=== PATIENT | male | born 1990 | race Two or more races ===

== ENCOUNTER 2018-02-06 05:15 | Emergency (ER) | payer MEDICAID ==
[~2018-02-06] VITALS: Ht 175.3 cm; Wt 127.0 kg
[2018-02-06] MEDS ORDERED: NKM (05:31)
[2018-02-06 05:41] VITALS: BP 131/89
[2018-02-06] MEDS ORDERED: BACTRIM DS TAB1 EAC1 ORAL (05:43)
[2018-02-06] MEDS ORDERED: MUPIROCIN22 GM TOPIC (05:43)
--- NOTE | 2018-02-06 05:43 | Emergency Room Report ---
History of Present Illness General Chief Complaint: Male Urogenital Problems Source: Patient Present Illness HPI Is a 27-year-old male with no past medical history. He presents with a rash to the suprapubic area. Initially is some redness and itchiness for a week to 2 weeks. Within the last few days now with raised and redness. No discharge. No drainage. Not diabetic. Itchy. Allergies: Coded Allergies: No Known Allergies (Unverified , 02/06/18) Patient History Past Medical History: none, see triage record, old chart reviewed Past Surgical History: none Pertinent Family History: none Social History: Denies: smoking Immunizations: other Reviewed Nursing Documentation: PMH: Agreed, PSxH: Agreed Nursing Documentation-PMH Past Medical History: No Stated History Review of Systems Eye: Denies: eye pain, blurred vision ENT: Denies: ear pain, nose congestion, throat swelling Respiratory: Denies: cough, shortness of breath Cardiovascular: Denies: chest pain, palpitations Gastrointestinal: Denies: abdominal pain, diarrhea, nausea, vomiting Musculoskeletal: Denies: back pain, joint pain Skin: Denies: rash Neurological: Denies: headache, numbness Endocrine: Denies: increased thirst, increased urine Hematologic/Lymphatic: Denies: easy bruising All Other Systems: negative except mentioned in HPI Physical Exam Vital Signs Date Time Temp Pulse Resp B/P (MAP) Pulse Ox O2 Delivery O2 Flow Rate FiO2 02/06/18 05:27 98.5 64 18 131/89 96 Room Air 98.4 vitals normal Sp02 EP Interpretation: reviewed, normal General Appearance: well appearing, no apparent distress, alert Head: normocephalic, atraumatic Eyes: bilateral eye PERRL, bilateral eye EOMI ENT: hearing grossly normal, normal pharynx Neck: full range of motion, supple, no meningismus Respiratory: chest non-tender, lungs clear, normal breath sounds Cardiovascular #1: regular rate, rhythm, no murmur Gastrointestinal: normal bowel sounds, non tender, no mass, no organomegaly, no bruit, non-distended Genitourinary: other - suprapubic area with several erythematous indurated area with central drainage. No big abscess in the period Musculoskeletal: back normal, gait/station normal, normal range of motion Psychiatric: mood/affect normal Skin: warm/dry Medical Decision Making Diagnostic Impression: Primary Impression: Cellulitis Qualified Codes: L03.90 - Cellulitis, unspecified ER Course Patient with cellulitis of the suprapubic area. May have early abscess but appeared already drained. Most likely MRSA. We'll put on antibiotics. No deep infection findings. No necrotizing fasciitis. Last Vital Signs Date Time Temp Pulse Resp B/P (MAP) Pulse Ox O2 Delivery O2 Flow Rate FiO2 02/06/18 05:27 98.5 64 18 131/89 96 Room Air 98.4 Status: improved Disposition: HOME, SELF-CARE Condition: Stable Scripts Mupirocin* (MUPIROCIN*) 22 Gm Oint...g. 1 APPLIC TOPIC THREE TIMES A DAY, #22 GM Prov: NATALIE NICHOLSON M.D. 02/06/18 Trimethoprim/Sulfamethoxazole 160/800* (BACTRIM DS TABLET*) 1 Each Tablet 1 TAB ORAL Q12H, #14 TAB 0 Refills Prov: NATALIE NICHOLSON M.D. 02/06/18 Referrals: Melissa STEPHENSON,REFERRING (PCP) Additional Instructions: Follow-up with your doctor in 3-5 days as needed. Return if symptom worsen. NATALIE NICHOLSON M.D. Feb 06, 2018 05:43
[2018-02-06 05:53] VITALS: BP 131/89
== END 2018-02-06 05:54 | disposition home or self-care (01) ==
LOC: EMR 05:36
DX: L03.319 Cellulitis of trunk, unspecified (principal)
CPT/HCPCS: 99284

== ENCOUNTER 2020-03-11 00:07 | Emergency (ER) | payer MEDICAID ==
[~2020-03-11] VITALS: Ht 175.3 cm; Wt 120.2 kg
[~2020-03-11 00:07] MED LIST: BACTRIM DS TAB1 EAC1 ORAL; MUPIROCIN22 GM TOPIC; NKM
[2020-03-11 00:24] VITALS: BP 125/80
--- NOTE | 2020-03-11 00:36 | Emergency Room Report ---
History of Present Illness General Chief Complaint: Skin Rash/Abscess Source: Patient Present Illness [facility] This is a 29-year-old male with no past medical history. He presents with chief complaint of irritation to the tip of the penis. This been ongoing for months. He is sexually active with protection. He and his girlfriend got STD testing recently and was negative. Not associated with any discharge. Occasionally when he urinates can be painful. Denies any drainage. He denies any trauma. No family history of diabetes. Denies any dysuria frequency. No urgency. Allergies: Coded Allergies: No Known Allergies (Unverified , 02/06/18) COVID-19 Screening Contact w/high risk pt: No Recent Travel to affected area: No Experienced COVID-19 symptoms?: No Patient History Past Medical History: see triage record, old chart reviewed Past Surgical History: none Pertinent Family History: none Social History: Denies: smoking Immunizations: other Reviewed Nursing Documentation: PMH: Agreed; PSxH: Agreed Nursing Documentation-PMH Past Medical History: No Stated History Review of Systems Eye: Denies: eye pain, blurred vision ENT: Denies: ear pain, nose congestion, throat swelling Respiratory: Denies: cough, shortness of breath Cardiovascular: Denies: chest pain, palpitations Gastrointestinal: Denies: abdominal pain, diarrhea, nausea, vomiting Musculoskeletal: Denies: back pain, joint pain Skin: Denies: rash Neurological: Denies: headache, numbness Endocrine: Denies: increased thirst, increased urine Hematologic/Lymphatic: Denies: easy bruising All Other Systems: negative except mentioned in HPI Physical Exam Vital Signs Date Time Temp Pulse Resp B/P (MAP) Pulse Ox O2 Delivery O2 Flow Rate FiO2 03/11/20 00:15 98.2 88 18 125/80 (95) 99 Room Air Vitals normal Sp02 EP Interpretation: reviewed, normal General Appearance: well appearing, no apparent distress, alert, obese Head: normocephalic, atraumatic Eyes: bilateral eye PERRL, bilateral eye EOMI ENT: hearing grossly normal, normal pharynx Neck: full range of motion, supple, no meningismus Respiratory: chest non-tender, lungs clear, normal breath sounds Cardiovascular #1: regular rate, rhythm, no murmur Gastrointestinal: normal bowel sounds, non tender, no mass, no organomegaly, no bruit, non-distended Genitourinary: other - Patient is circumcised. There is slight irritation at the meatal opening. No vesicular lesion. No discharge. Musculoskeletal: back normal, normal range of motion, gait/station normal Psychiatric: mood/affect normal Medical Decision Making Diagnostic Impression: Primary Impression: Urethritis, not sexually transmitted ER Course Patient presents with irritation to the tip of the penis. Could be fungal. Accu-Chek normal. Not any infection. He had STD testing was negative. Will discharge home. Last Vital Signs Date Time Temp Pulse Resp B/P (MAP) Pulse Ox O2 Delivery O2 Flow Rate FiO2 03/11/20 00:15 98.2 88 18 125/80 (95) 99 Room Air Status: unchanged Disposition: HOME, SELF-CARE Condition: Stable Scripts Nystatin/Triamcin (NYSTATIN-TRIAMCINOLONE CREAM) 15 Gm Cream..g. 15 GM TP BID, #15 GM Prov: Dante Leija MD 03/11/20 Fluconazole* (DIFLUCAN*) 100 Mg Tablet 100 MG ORAL DAILY, #7 TAB Prov: Dante Leija MD 03/11/20 Additional Instructions: Follow-up with your doctor in 7 days. You may need referral to see a jewel staker. Return if symptoms worsen. Dante Leija MD Mar 11, 2020 00:36
[2020-03-11 00:45] LABS: APPEARANCE,URINE CLEAR; BILIRUBIN, URINE NEGATIVE (NEGATIVE); COLOR,URINE PALE YELLOW; GLUCOSE, URINE (UA) NEGATIVE (NEGATIVE); KETONES,URINE NEGATIVE (NEGATIVE); NITRITE,URINE NEGATIVE (NEGATIVE); PH,URINE 7 (4.5-8.0); PROTEIN,URINE NEGATIVE (NEGATIVE); UROBILINOGEN,URINE 1 MG/DL (0.0-1.0)
[2020-03-11 00:50] LABS: LEUKOCYTE ESTERASE ,URINE NEGATIVE (NEGATIVE)
[2020-03-11] MEDS ORDERED: NYSTATIN-TRIAMC15 G2 TP (01:12)
[2020-03-11] MEDS ORDERED: DIFLUCAN100 MG ORAL (01:12)
[2020-03-11 01:15] VITALS: BP 118/73
== END 2020-03-11 01:15 | disposition home or self-care (01) ==
LOC: EMR 00:47
DX: N34.2 Other urethritis (principal); E66.9 Obesity, unspecified; Z68.39 Body mass index [BMI] 39.0-39.9, adult
CPT/HCPCS: 81003; Z7502; 99282

== ENCOUNTER 2020-12-16 06:26 | Emergency (ER) | payer MEDICAID ==
[~2020-12-16] VITALS: Ht 175.3 cm; Wt 131.5 kg
[~2020-12-16 06:26] MED LIST changes: +DIFLUCAN100 MG ORAL; +NYSTATIN-TRIAMC15 G2 TP
--- NOTE | 2020-12-16 07:01 | NUR ---
ED Nurse Note: Pt walked in from home, he walks with a steady gait, axox4, he speaks in full sentances, breathing is even and unlabored. Pt states that he has neck and back pain since sunday after he reports doing "nitrous oxide" with balloons. Educated pt about risks of inhaling substances. Pt is afebrile.
[2020-12-16 07:05] VITALS: BP 134/93
--- NOTE | 2020-12-16 07:05 | NUR ---
ED Nurse Note: Patient walked into the ED with c/o headache and neckpain onset 12/13/19/. Pain starts from the head that radiates to neck, pain is throbbing, 3/10 and comes and goes. Pt also c/o numbness in the tongue and muscle weakness at jaw area. Pt was drinking and used nitrous oxide the night s/sx happened. Denies injury/trauma. Patient is AAOX4 and ambulatory
--- NOTE | 2020-12-16 07:07 | NUR ---
ED Nurse Note: ERMD at bedside
--- NOTE | 2020-12-16 07:12 | Emergency Room Report ---
History of Present Illness General Chief Complaint: Headache Source: Patient Present Illness HPI Patient is a 30-year-old male presents for increased headache. Reports having onset of symptoms approximately 3 days ago. Associated nausea as well as eye pressure. Reports having onset of symptoms after alcohol and nitrous oxide use. Reports having increased paresthesias to the upper extremities as well as in creased generalized body aches. Reports of increased sore throat. 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 COVID-19 Screening: Negative COVID-19 COVID-19 Testing Source: [facility] Patient History Past Medical History: see triage record Reviewed Nursing Documentation: PMH: Agreed; PSxH: Agreed Nursing Documentation-PMH Past Medical History: No Stated History Review of Systems All Other Systems: negative except mentioned in HPI Physical Exam Vital Signs Date Time Temp Pulse Resp B/P (MAP) Pulse Ox O2 Delivery O2 Flow Rate FiO2 12/16/20 06:43 98.2 85 20 134/93 (107) 99 Room Air Sp02 EP Interpretation: reviewed, normal General Appearance: normal inspection, well appearing, no apparent distress, alert, GCS 15, obese Head: atraumatic ENT: normal ENT inspection, hearing grossly normal, normal voice Neck: normal inspection, full range of motion, supple, no bony tend Respiratory: normal inspection, lungs clear, normal breath sounds, no respiratory distress, no retraction, no wheezing Cardiovascular #1: regular rate, rhythm, no edema Gastrointestinal: normal inspection, normal bowel sounds, non tender, soft, no guarding, no hernia Genitourinary: no CVA tenderness Musculoskeletal: normal inspection, back normal, normal range of motion Neurologic: alert, responsive, speech normal, normal inspection Psychiatric: normal inspection, judgement/insight normal, mood/affect normal Medical Decision Making Diagnostic Impression: Primary Impression: Headache ER Course Presented for headache. Differential diagnosis include was not limited to coronavirus infection, viral respiratory infection, intracranial hemorrhage among others. CT imaging was ordered to patient's new onset of headache. CT imaging read by radiology showed no acute pathology. Patient was given IV fluids as well as Reglan with improvement of symptoms.Patient has a benign overall exam. Does not have any evidence of focal neurologic deficit. Patient is advised to follow-up for repeat laboratory testing as well as outpatient Covid testing. Patient was given return precautions. He will be given prescriptions for medication for symptomatic management. Is advised not to use drugs. This medical record is generated with [employer] sand analyst software. There may be some sand analyst discrepancies related to use of this software Labs Test 12/16/20 07:00 12/16/20 07:27 White Blood Count 11.1 K/UL (4.8-10.8) Red Blood Count 5.64 M/UL (4.70-6.10) Hemoglobin 17.0 G/DL (14.2-18.0) Hematocrit 50.6 % (42.0-52.0) Mean Corpuscular Volume 90 FL (80-99) Mean Corpuscular Hemoglobin 30.2 PG (27.0-31.0) Mean Corpuscular Hemoglobin Concent 33.6 G/DL (32.0-36.0) Red Cell Distribution Width 12.3 % (11.6-14.8) Platelet Count 422 K/UL (150-450) Mean Platelet Volume 6.6 FL (6.5-10.1) Neutrophils (%) (Auto) 58.9 % (45.0-75.0) Lymphocytes (%) (Auto) 30.2 % (20.0-45.0) Monocytes (%) (Auto) 8.8 % (1.0-10.0) Eosinophils (%) (Auto) 0.9 % (0.0-3.0) Basophils (%) (Auto) 1.2 % (0.0-2.0) Last Vital Signs Date Time Temp Pulse Resp B/P (MAP) Pulse Ox O2 Delivery O2 Flow Rate FiO2 12/16/20 07:05 98.2 20 134/93 99 Room Air 12/16/20 06:43 85 Status: improved Disposition: HOME, SELF-CARE Condition: Stable Scripts Ibuprofen* (MOTRIN*) 400 Mg Tablet 400 MG ORAL Q8H, #30 TAB 0 Refills Prov: Tre Leon MD 12/16/20 Ondansetron Odt* (ZOFRAN ODT*) 4 Mg Tab.rapdis 4 MG BC EVERY 8 HOURS PRN for Nausea & Vomiting, #10 TAB 0 Refills Prov: Tre Leon MD 12/16/20 Tre Leon MD Dec 16, 2020 07:12
[2020-12-16] MEDS ORDERED: Metoclopramide 10mg/2ml Inj IVP ONE (07:30)
--- NOTE | 2020-12-16 07:33 | NUR ---
HAND-OFF: Report given to Machelle KLEIN .
[2020-12-16 07:54] LABS: BASOPHILS % (AUTO) 1.2 % (0.0-2.0); EOSINOPHILS % (AUTO) 0.9 % (0.0-3.0); HEMATOCRIT 50.6 % (42.0-52.0); LYMPHOCYTES % (AUTO) 30.2 % (20.0-45.0); MEAN CORPUSCULAR VOLUME 90 FL (80-99); MONOCYTES % (AUTO) 8.8 % (1.0-10.0); NEUTROPHILS % (AUTO) 58.9 % (45.0-75.0); PLATELET COUNT 422 K/UL (150-450); RED BLOOD COUNT 5.64 M/UL (4.70-6.10); RED CELL DISTRIBUTION WIDTH 12.3 % (11.6-14.8); WHITE BLOOD COUNT 11.1 K/UL (4.8-10.8)
--- NOTE | 2020-12-16 08:00 | Diagnostic Imaging Report ---
EXAM: CT Head Without Intravenous Contrast CLINICAL HISTORY: PAIN TECHNIQUE: Axial computed tomography images of the head/brain without intravenous contrast. CTDI is 53.4 mGy and DLP is 1152.4 mGy-cm. One or more of the following dose reduction techniques were used: automated exposure control, adjustment of the mA and/or kV according to patient size, use of iterative reconstruction technique. COMPARISON: No relevant prior studies available. FINDINGS: Brain: Unremarkable. No hemorrhage. No significant white matter disease. No edema. Ventricles: Unremarkable. No ventriculomegaly. Bones/joints: Unremarkable. No acute fracture. Soft tissues: Unremarkable. Sinuses: Unremarkable as visualized. No acute sinusitis. Mastoid air cells: Unremarkable as visualized. No mastoid effusion. IMPRESSION: Normal head/brain CT.
[2020-12-16 08:11] LABS: ANION GAP 6 mmol/L (5-15); BLOOD UREA NITROGEN 16 mg/dL (7-18); CALCIUM 8.9 MG/DL (8.5-10.1); CARBON DIOXIDE 30 MMOL/L (21-32); CHLORIDE 105 MMOL/L (98-107); CREATININE 0.9 MG/DL (0.55-1.30); POTASSIUM 3.9 MMOL/L (3.5-5.1); SODIUM 141 MMOL/L (136-145)
[2020-12-16] MEDS ORDERED: ONDANSETRON ODT4 MG BC ×2 (08:17→08:20)
[2020-12-16] MEDS ORDERED: IBUPROFEN400 MG ORAL (08:20)
[2020-12-16 08:22] LABS: ALANINE AMINOTRANSFERASE 56 U/L (12-78); ALBUMIN 4.3 G/DL (3.4-5.0); ALBUMIN/GLOBULIN RATIO 1.1 (1.0-2.7); ALKALINE PHOSPHATASE 118 U/L (46-116); ASPARTATE AMINO TRANSFERASE 34 U/L (15-37); BILIRUBIN,DIRECT 0.2 MG/DL (0.0-0.3); BILIRUBIN,TOTAL 1.1 MG/DL (0.2-1.0)
[2020-12-16 08:30] VITALS: BP 130/80
== END 2020-12-16 08:35 | disposition home or self-care (01) ==
LOC: EMR 07:05
DX: R51.9 Headache, unspecified (principal)
CPT/HCPCS: 36415; 70450; 80053; 80307; 82248; 85025; 85610; 85730; 96361; 96374; J2765; J7030; U0002; Z7502; 99284